=== PATIENT | female | born 1975 | race Caucasian/White ===

== ENCOUNTER 2016-10-12 15:39 | Outpatient (CLI) | payer BC ==
[~2016-10-12 15:39] MED LIST: LACTATED RINGERS 1,000 ML IV PRN; LACTATED RINGERS 1,000 ML IV SCH
[2016-10-12 15:55] VITALS: BMI 33.8
[2016-10-12] MEDS ORDERED: PENICILLIN G POTASSIUM 5 MMU in NS 0.9% (MINI-BAG PLUS) 100 ML IV ONE (16:00)
--- NOTE | 2016-10-12 17:32 | US ---
Name: KATINA ANNE Exam: Biophysical profile Comparison: None Clinical history: Intrauterine gestation late in the third trimester with estimated date of delivery of 10/23/2016 Findings: There is a single term gestation in a cephalic presentation with a heart rate of 133 bpm. JA is 7 cm with the deepest pocket measuring 3.2 cm. Ultrasound biophysical profile is 8 out of 8. Growth measurements and anatomic survey were not performed per ordering physician. Impression: 1. Term gestation in cephalic presentation 2. 4 quadrant JA is 7.0 with the deepest pocket 3.2 cm 3. Ultrasound biophysical profile is 8 out of 8 Note: Message was left on Mohan Retana's phone at 1718 hours
[2016-10-12] MEDS ORDERED: PENICILLIN G 3 MIL UNIT PREMIX 3 MMU in Premix (D5W) 50 ml 1 EACH IV SCH (20:00)
== END 2016-10-12 18:15 | disposition home or self-care (01) ==
LOC: FBCOUT 15:39 → FBC 15:46 → FBCOUT 18:15
PROVIDERS: ATTEND Advanced Practice Midwife
DX: O26.899 Other specified pregnancy related conditions, unspecified trimester (principal); O09.529 Supervision of elderly multigravida, unspecified trimester; Z3A.00 Weeks of gestation of pregnancy not specified
CPT/HCPCS: 76819; 59025; G0463

== ENCOUNTER 2016-10-16 03:57 | Inpatient (IN) | payer BC ==
[2016-10-16] MEDS ORDERED: MINERAL OIL 25 ML BOT ONE (04:16)
[2016-10-16] MEDS ORDERED: OXYTOCIN IN NS 500 ML IV ONE (04:16)
[2016-10-16] MEDS ORDERED: LIDOCAINE Viscous 2% 15 ML UDCUP ONE (04:16)
[2016-10-16] MEDS ORDERED: LIDOCAINE 1% (PRES FREE) 30 ML VIAL ONE (04:16)
[2016-10-16] MEDS ORDERED: OXYTOCIN 10 UNITS/ML VIAL ONE (04:16)
[2016-10-16] MEDS ORDERED: PENICILLIN G POTASSIUM 5 MMU in NS 0.9% (MINI-BAG PLUS) 100 ML IV ONE (04:31)
[2016-10-16] MEDS ORDERED: LACTATED RINGERS 1,000 ML IV PRN (04:31)
[2016-10-16] MEDS ORDERED: PENICILLIN G POTASSIUM 5 MMU VIAL ONE (04:33)
[2016-10-16 04:41] LABS: HEMATOCRIT 36.5 % (37.0-47.0); HEMOGLOBIN 12.6 gm/l (12.0-16.0); MEAN CELL VOLUME 87.1 fl (81.0-99.0); MEAN CORPUSCULAR HEMOGLOBIN 30.1 pg (27.0-31.0); MEAN CORPUSCULAR HGB CONC 34.5 g/dl (33.0-37.0); RED CELL DISTRIBUTION WIDTH 12.2 % (11.5-14.5)
[2016-10-16] MEDS ORDERED: LACTATED RINGERS 1,000 ML IV SCH (04:45)
[2016-10-16 04:47] VITALS: BMI 31.8
[2016-10-16] MEDS ORDERED: LIDOCAINE 1% (PRES FREE) 30 ML VIAL SUB-Q ONE (05:33)
[2016-10-16] MEDS ORDERED: HYDROCODONE/ACETAMINOPHEN 5/325MG TABLET PO PRN (05:57)
[2016-10-16] MEDS ORDERED: CALCIUM CARBONATE 500 MG TAB.CHEW PO PRN (05:57)
[2016-10-16] MEDS ORDERED: DOCUSATE SODIUM 100 MG CAPSULE PO PRN (05:57)
[2016-10-16] MEDS ORDERED: ACETAMINOPHEN 325 MG TABLET PO PRN (05:57)
[2016-10-16] MEDS ORDERED: LANOLIN 50 APPLIC/7G TUBE TP PRN (05:57)
[2016-10-16] MEDS ORDERED: BENZOCAINE/MENTHOL 60 APPLIC/BOT TP PRN (05:57)
[2016-10-16] MEDS ORDERED: HYDROCORTISONE 2.5% CREAM 20 APPLIC/30 G TUBE TP PRN (05:59)
--- NOTE | 2016-10-16 06:19 | PCMDEL ---
Delivery Note - Labor 1st stage (hr/min):: 3h8m 2nd stage (hr/min):: 53m 3rd stage (hr/min):: 14m Total (hr/min):: 4h15m Pushed (hr/min):: 2min - Delivery Delivery (Date): 10/16/16 Delivery (Time): 05:15 Gender: Male Position: OA Umbilical Cord: 3 Vessel, Nuchal Cord Delayed Cord Clamping:: > 3 min 1 Minute Total: 8 5 Minute Total: 9 Placenta:: intact, shultze, trailing membranes EBL:: 100mL Perineum:: 1st degree perineal, repaired Suture:: 3-0 vicryl Anesthesia/Meds:: none for labor; local lidocaine for repair Length ROM:: 0m, SROM with delivery of head Comments:: 1st stage summary: Brittany arrived to [facility] completely dilated with no spontaneous urge to push, bag of garcia intact. She labored down unmedicated. NST reactive, switched to intermittent monitoring (per RN preference). IV placed and labs drawn. Received x1 dose of penicillin for GBS prophylaxis. 2nd stage summary: Pushed spontaneously for 1 contraction, SROM with delivery of head. Nuchal and body cord, body somersaulted through. of a viable male with spontaneous cries, placed on maternal abdomen for drying and stimulation. Cord clamped and cut after pulsations ceased. 3rd stage summary: Placenta delivered with maternal effort, intact, Shultze, 3-vessel cord, trailing membranes that were teased out with pt coughing. 1st degree perineal laceration repaired under local lidocaine anesthetic to approximation and hemostasis. Fundus firm 1FB below umbilicus, scant blood on massage. GYK=[id number]. Mom and baby [id number] and bonding well. weight and length pending at time of note.
--- NOTE | 2016-10-16 06:32 | PCMAN ---
OB Admission Note - History : 4 Term: 0 : 0 Abortions (S&E): 3 Livin EDC:: 10/19/16 Gestational Age (weeks): 39 Days (#/7): 4 Admit Cervical Dilation:: 10 Admit Cervical Effacement (%):: 100 Admit Station:: -1 Admit Presentaton:: vtx Membrane Status: Intact Labor Onset (Date): 10/16/16 Labor Onset (Time): 01:00 Contraction Frequency:: 2-4 Heart Rate:: 125 (moderate variability, accels present, decels absent) Status:: Category 1 EFW:: 7lbs Summary of Course:: Onset of care at 11wks x13 visits. JOSE by LMP confirmed by 8wk ultrasound. complicated by maternal tobacco use (decreased use during , didn't quit entirely), anemia treated with PO iron, advanced maternal age, borderline low JA on 10/12/16 (4.7cm in morning, 7cm on BPP in PM) . Medical hx includes headaches and IBS (not symptomatic this ). Surgical hx non-contributory. OB hx includes 2 SABs and 1 phantom . Pre - BMI= 28.7, total weight gain=32lbs. - Labs Blood Type: O (+) positive Hct/Hgb:: 11.0 Rubella Status: Immune GBS Status: Positive Abnormal Labs: Other (Hgb on 07/18/16 was 9.7) - Review of Systems C/o regular painful contractions. Denies vaginal bleeding, SROM, decreased FM. - Physical Exam General: Mild Distress (Working hard through contractions) Psych/Mental Status: Mood/Affect Appropriate Lungs: Clear to Auscultation Bilaterally Cardiovascular: Regular Rate and Rhythm Extremities: Full ROM - Problems (1) Active labor at term Status: AcuteAssessment/Plan: A: 40yo IUP at 39w4d Completely dilated-no urge to push Fetus Category 1 GBS pos Bag of garcia intact AMA Tobacco use in P: Admitted to [facility] and transferred to labor room from triage where she labored down and delivered baby with 1 contraction. IV placed, labs drawn, and 1 dose of PCN administered prior to IA after reactive NST obtained Planed unmedicated Continuous labor support from partner and family members Active management deferred d/t pt request Anticipate *Admission note completed after delivery due rapid labor progression.
[2016-10-16] MEDS: IBUPROFEN 800 MG TABLET PO SCH ×3 (08:12→23:02)
[2016-10-16] MEDS ORDERED: PENICILLIN G 3 MIL UNIT PREMIX 3 MMU in Premix (D5W) 50 ml 1 EACH IV SCH (09:00)
[2016-10-17] MEDS: IBUPROFEN 800 MG TABLET PO SCH ×3 (01:50→09:05)
[2016-10-17 07:48] VITALS: BP 122/65
--- NOTE | 2016-10-17 13:55 | PDOC39B ---
Hospital Course: ADMIT DATE: 10/16/16 DISCHARGE DATE: 10/17/16 ADMISSION DIAGNOSES: Active Labor PROCEDURES: HISTORY OF PRESENT ILLNESS: 40 year old G4 T0 L0 at 39 weeks 4 days presenting with active labor. HOSPITAL COURSE: The patient arrived in advanced labor and delivered shortly afterwards. She had an uncomplicated vaginal . By day of discharge the patient is stable, well and ready to go home. - Physical Exam Vital Signs: Temp Pulse Resp BP Pulse Ox 98.1 F 87 16 122/65 10/17/16 07:47 10/17/16 07:47 10/17/16 07:47 10/17/16 07:47 General: Afebrile Psych/Mental Status: Mood/Affect Appropriate, Bonding Well Breast: Soft, Nipples Intact Fundus: Firm, Midline, Below Umbilicus Genitourinary: Normal Female Genitalia Lochia: Moderate Skin: Normal Color, Warm, Dry - Discharge Diagnosis (1) care and examination of lactating mother Status: Acute - Discharge Plan Condition: Stable Disposition: Home Additional Instructions: Midwifery 'After the ' handout given to patient. Follow-Up: Mohan Retana CNM [Family Provider] - In 2 weeks
== END 2016-10-17 15:35 | disposition home or self-care (01) | DRG 775 ==
LOC: FBC 03:57 → FBCOUT 03:57 → FBC 03:59 → FBCOUT 04:07 → FBC 21:37
PROVIDERS: ADMIT Registered Nurse; ATTEND Advanced Practice Midwife
PROC: 10E0XZZ Delivery of Products of Conception, External Approach (ICD-10-PCS; principal; 2016-10-16)
PROC: 0HQ9XZZ Repair Perineum Skin, External Approach (ICD-10-PCS; 2016-10-16)
DX: O99.334 Smoking (tobacco) complicating childbirth (principal); F17.210 Nicotine dependence, cigarettes, uncomplicated; Z3A.39 39 weeks gestation of pregnancy; O99.02 Anemia complicating childbirth; D64.9 Anemia, unspecified; O09.523 Supervision of elderly multigravida, third trimester; O70.0 First degree perineal laceration during delivery; Z37.0 Single live birth